=== PATIENT | female | born 1960 | race Caucasian/White ===

== ENCOUNTER 2024-07-02 07:17 | Outpatient (CLI) | payer OTHER, SELFPAY ==
--- NOTE | 2024-07-02 07:15 | CRLHL7_ITS ---
For Patients: As a result of the Century Cures Act, medical imaging exams and procedure reports are released immediately into your electronic medical record. You may view this report before your referring provider. If you have questions, please contact your health care provider. CLINICAL HISTORY: post menopausal bleeding TECHNIQUE: 2D sewell scale and color Doppler images were acquired of the pelvis using a transvaginal approach. FINDINGS: On transvaginal imaging, the myometrium has a normal uniform echotexture. The uterus measures 4.3 x 1.9 x 3.1 cm. The endometrial lining measures 1.8 mm in thickness. The left ovary is not visualized and the right ovary measures 3.9 x 2.6 x 3.0 cm. The right ovary demonstrates normal arterial and venous blood flow on color Doppler analysis. There are no suspicious fluid collections within the cul-de-sac. There is a complex right ovarian cyst present with hypoechoic internal echotexture measuring 2.7 x 2.3 x 2.3 cm along with a focus of increased echogenicity. There is some color flow present within this solid area. IMPRESSION: Endometrial thickness 1.8 millimeters. No endometrial fluid or uterine fibroid. Complex right ovarian cyst measuring 2.7 x 2.3 x 2.3 cm with a nonshadowing solid hyperechoic component with some internal color flow. Pelvic MRI recommended. Dictated by Charlie Brewer MD @ 07/02/2024 10:11:38 AM (Electronically Signed)
== END 2024-07-02 07:18 | disposition home or self-care (01) ==
LOC: US 07:18
PROVIDERS: Visit Provider Obstetrics & Gynecology
DX: N95.0 Postmenopausal bleeding (principal); R93.89 Abnormal findings on diagnostic imaging of other specified body structures; N83.291 Other ovarian cyst, right side
CPT/HCPCS: 76830; 93976

== ENCOUNTER 2024-07-10 13:37 | Outpatient (CLI) | payer OTHER, SELFPAY ==
[2024-07-13 05:23] LABS: HPV Source Cervical; HPV, High Risk by TMA Not Detected
== END 2024-07-10 13:38 | disposition home or self-care (01) ==
PROVIDERS: Visit Provider Obstetrics & Gynecology
DX: N95.0 Postmenopausal bleeding (principal); N89.8 Other specified noninflammatory disorders of vagina; Z12.4 Encounter for screening for malignant neoplasm of cervix
CPT/HCPCS: 86304; 87624; 87625; 88141; 88142

== ENCOUNTER 2024-07-21 07:08 | Outpatient (CLI) | payer OTHER, SELFPAY ==
--- NOTE | 2024-07-21 07:15 | CRLHL7_ITS ---
For Patients: As a result of the Century Cures Act, medical imaging exams and procedure reports are released immediately into your electronic medical record. You may view this report before your referring provider. If you have questions, please contact your health care provider. INDICATION: Abdominal and pelvic pain, follow-up pelvic ultrasound TECHNIQUE: 1.5 T MRI performed with pre and postcontrast T1 weighted imaging; T2 weighted imaging. 10.5 mL Dotarem administered COMPARISON: Pelvic ultrasound 07/02/2024 FINDINGS: Uterus: The uterus is normal in size measuring 2.1 x 5.8 cm. The endometrium measures 2 mm in thickness and possibly contains T2 heterogeneous debris. There is a 0.9 cm T2 hyperintense signal along the anterior uterine fundus, which may represent a scar. Please correlate with clinical history No uterine fibroids are appreciated. No evidence of adenomyosis. No intrinsic T1 hyperintense foci to definitely suggest endometriosis. Cervical stroma: Intact without evidence of mass Ovaries/adnexa: The left ovary is unremarkable. There is a well-circumscribed T2 hyperintense cystic structure within the right ovary measuring 2.4 cm (/18) without definite internal enhancement and smooth thin enhancing wall. There are two adjacent similar subcentimeter cystic lesions. Remaining pelvis: There is apparent tethering of loops of sigmoid colon adjacent to this cystic right ovarian structure (/17). Multiple loops of small bowel appear matted within the right lower pelvis. The bladder is unremarkable Vasculature: Visualized aorta is patent and normal in caliber. The iliac arteries are patent. Lymph nodes: No enlarged lymph nodes within the pelvis. Peritoneal space: No free fluid within the pelvis. There is peritoneal thickening adjacent to the right ovarian cystic structure (8/17). Musculoskeletal: Bone marrow signal is within normal limits. IMPRESSION: 1. Decreased size of right ovarian cystic structure measuring up to 2.1 cm, previously 2.7 cm on prior pelvic ultrasound, that now appears to complain simple fluid without evidence of internal enhancement. Recommend short interval follow-up ultrasound to ensure resolution. 2. The endometrium is normal in thickness however may contain heterogeneous debris. This can be further evaluated on repeat ultrasound if performed. 3. Apparent tethering of loops of sigmoid colon and matted small bowel loops in the right lower quadrant may suggest sequela of deep infiltrating endometriosis. Dictated by Farideh Watkins MD @ 07/22/2024 7:46:27 AM (Electronically Signed)
== END 2024-07-21 07:09 | disposition home or self-care (01) ==
LOC: MRI 07:10
PROVIDERS: Visit Provider Obstetrics & Gynecology
DX: R10.2 Pelvic and perineal pain (principal); N83.8 Other noninflammatory disorders of ovary, fallopian tube and broad ligament; N83.201 Unspecified ovarian cyst, right side; R93.89 Abnormal findings on diagnostic imaging of other specified body structures; K31.89 Other diseases of stomach and duodenum
CPT/HCPCS: 72197; A9575

== ENCOUNTER 2024-11-12 07:04 | Outpatient (CLI) | payer BC, SELFPAY | END 2024-11-12 07:05 | disposition home or self-care (01) | PROVIDERS: Visit Provider Obstetrics & Gynecology | DX: N83.8 Other noninflammatory disorders of ovary, fallopian tube and broad ligament (principal); N83.201 Unspecified ovarian cyst, right side | CPT/HCPCS: 76830 ==

== ENCOUNTER 2024-11-18 07:42 | Outpatient (CLI) | payer BC, SELFPAY | END 2024-11-18 07:43 | disposition home or self-care (01) | LOC: NFLDREF 11-21 03:08 | PROVIDERS: Visit Provider Obstetrics & Gynecology | DX: N83.8 Other noninflammatory disorders of ovary, fallopian tube and broad ligament (principal); N83.201 Unspecified ovarian cyst, right side | CPT/HCPCS: 82378; 86301; 86304 ==

== ENCOUNTER 2025-02-18 06:04 | Day surgery (SDC) | payer BC, SELFPAY ==
[2025-02-18] VITALS (11 sets, daily range): BP systolic 101–126; BP diastolic 51–86; PULSE 46–62; RESP 14–16; TEMP 36.2–36.8; O2SAT 94–98; BMI 21.9
[2025-02-18] MEDS: SODIUM CHLORIDE 0.9 % (FLUSH) 10 ML SYRINGE IVF (06:35)
[2025-02-18] MEDS: LACTATED RINGERS 1000 ML 1,000 ML 100 ML IV (06:35)
[2025-02-18 06:48] LABS: Hemoglobin* 14.2 gm/dL (12.0-16.0)
[2025-02-18] MEDS: BUPIVACAINE 0.5 %/EPI 1:200K 30 ML INJECTION (08:24)
--- NOTE | 2025-02-18 08:36 | P.ANES_ITS ---
Anesthesia Charges Start Date/Time Anesthesia Start Date: 02/18/25 Anesthesia Start Time: 07:24 Stop Date/Time Anesthesia Stop Date: 02/18/25 Anesthesia Stop Time: 08:52 Coding CPT Codes CPT Codes: ANESTH SURG LOWER ABDOMEN - 47465 ([id number]) P1 - NORMAL HEALTHY PATIENT, QK - REHABILITATION TEAM LEAD 2-4 CNCRNT ANES PROC, QX - SCREEN PRINT OPERATOR SVCampos W/ MED DIRECTION
--- NOTE | 2025-02-18 08:36 | W.ANESCHARGE ---
Anesthesia Charges Start Date/Time Anesthesia Start Date: 02/18/25 Anesthesia Start Time: 07:24 Stop Date/Time Anesthesia Stop Date: 02/18/25 Anesthesia Stop Time: 08:52 Coding CPT Codes CPT Codes: ANESTH SURG LOWER ABDOMEN - 03227 ([id number]) P1 - NORMAL HEALTHY PATIENT, QK - BANQUET DIRECTOR 2-4 CNCRNT ANES PROC, QX - ASSEMBLER BICYCLE SVC[employer] W/ MED DIRECTION
--- NOTE | 2025-02-18 08:40 | SUR.OPER ---
vega discontinued after procedure
--- NOTE | 2025-02-18 08:48 | W.PM.H&PU ---
History & Physical Update History & Physical Update H&P Reviewed and patient assessed: No changes noted
--- NOTE | 2025-02-18 08:50 | P.ANES_ITS ---
Anesthesia Charges Start Date/Time Anesthesia Start Date: 02/18/25 Anesthesia Start Time: 07:24 Stop Date/Time Anesthesia Stop Date: 02/18/25 Anesthesia Stop Time: 08:52 Coding CPT Codes CPT Codes: ANESTH SURG LOWER ABDOMEN - 77552 ([id number]) P1 - NORMAL HEALTHY PATIENT, QK - BURNER TENDER 2-4 CNCRNT ANES PROC, QX - BREAKER HAND SVCampos W/ MED DIRECTION
--- NOTE | 2025-02-18 08:50 | W.ANESCHARGE ---
Anesthesia Charges Start Date/Time Anesthesia Start Date: 02/18/25 Anesthesia Start Time: 07:24 Stop Date/Time Anesthesia Stop Date: 02/18/25 Anesthesia Stop Time: 08:52 Coding CPT Codes CPT Codes: ANESTH SURG LOWER ABDOMEN - 44101 ([id number]) P1 - NORMAL HEALTHY PATIENT, QK - UNIT TENDER 2-4 CNCRNT ANES PROC, QX - OPERATOR BEARER SYSTEMS SVCampos W/ MED DIRECTION
--- NOTE | 2025-02-18 08:55 | P.GYNPRC_ITS ---
Procedure Note Time Seen by Provider: 08:56 Date of procedure: 02/18/25 Will [facility] bill your pro fee for this procedure?: Yes Pre-op diagnosis: 1. Complex right ovarian cyst Post-op diagnosis: 1. Complex right ovarian cyst 2. Surgically absent left ovary Anesthesia: GETA and local Surgeon: Heidi Rico MD Estimated blood loss (mL): 5 IV fluids (mL): 900 Urine Output (mL): 150 Pathology: specimen obtained, sent to pathology (1. Right fallopian tube and ovary 2. Left fallopian tube remnant) Condition: stable Disposition: same day Procedure Description: Operation: Diagnostic Laparoscopy, bilateral salpingectomy, right oophorectomy Operative Findings: Exam under anesthesia: Pelvic exam: Mons normal, clitoris normal, urethral meatus normal. Labia minora and majora normal in appearance bilaterally. Perineum and anus normal appearance. Vaginal introitus with moderate atrophy, otherwise normal. Bimanual exam reveals uterus to be soft, nontender, mobile, anteverted, of small size and normal texture. No palpable adnexal masses or tenderness. Small umbilical hernia noted. On laparoscopy: normal right fallopian tubes. Right ovary looked normal appearing overall with small ovarian cyst noted. Left ovary surgically absent. Remnant of left fallopian tube. Filmy adhesion of the sigmoid colon to the left pelvic sidewall EBL: 5 cc Specimens: 1. Right fallopian and ovary 2. Left remnant of left fallopian tube Complications: None Clinical Note: Ms. Funk is a 64 year old female who presented with surgical management of right complex ovarian cyst. We have been monitoring since 06/2024. There was small interval growth but normal tumor markers. However, decision was made to pursue definitive management with bilateral salpingo-oophorectomy. Blessing was taken to the operating room where general anesthetic was found to be adequate. She was placed in the dorsal lithotomy position and an exam under anesthesia was performed with findings stated above. She was then prepped and draped in a normal sterile manner. A Bladder was drained with Harkins catheter was placed. Sponges was placed intravaginally to act as uterine manipulator. Attent ion was then turned to performing the laparoscopic portion of the procedure. All incisions were infiltrated with 1% lidocaine with epinephrine prior to incising the skin. A vertical, infraumbilical 5 mm incision was made. A 5 mm trocar was then placed under direct visualization through the hernia. The abdomen was then insufflated with CO2 gas to a pressure of 15 mm of mercury. The patient was then placed in steep Trendelenburg. A pelvic port was then placed approximately 3-4 finger breaths medial to the ischial crests. The trocar in the LLQ = 11mm. These were placed under direct visualization. A 3rd port was made in the patient's left lower quadrant, just superior medial to the left ASIS. A 5 mm Fios Kii port was inserted under direct visualization and without complication. The balloon on each of the 3 ports was inflated, holding each in place. Examination of the peritoneal cavity revealed no signs of injury from entry. Attention was then turned to performing the diagnostic laparoscopy and bilateral salpingectomy and oopherectomy. It was noted that left ovary was surgically absent. Beginning on the right side, the infundibular ligament (IP) was identified by lifting the fallopian tube towards the anterior wall of the abdomen. The ureter was visualized along the pelvic sidewall with vermiculating noted. The LigaSure device was then used to clamp and ligate the IP ligament in 3 sequential overlapping regions to ensure a secure blood supply prior to cutting. The IP was then cut mid distance and the pedicle was inspected for hemostasis. The fallopian tube was then sequentially clamped, ligated, and cut working in the right cornua and being mindful of always staying away all vasculatures. Attention was then turned towards left salpingectomy due to remnant noted. The left fallopian tube at the fimbria, removed with sequential pedicles using the LigaSure [place] tip dissecting forceps. Fallopian tube was removed from the abdominal cavity. Excellent hemostasis was noted of all pedicles. The trocars were then removed under direct visualization. The CO2 gas was allowed to escape the infraumbilical port prior to its removal. Fascia closed on the 11 port with a figure of 8 using 0 vicryl under direct visualization. Small umbilical hernia was closed with 1 figure of 8 with 0 vicryl under direct visualization as well. All incisions were reapproximated using 4-0 Monocryl in a running subcuticular manner. Exofin was applied over each incision. The vaginal manipulator and Harkins catheter were removed. The patient tolerated this procedure well. Sponge, lap and instrument counts were correct x2 at the end of the procedure and the patient was taken to the recovery area in stable condition. Surgical debrief performed and specimen reviewed.
[2025-02-18] MEDS: ACETAMINOPHEN 500 MG TABLET 1000 MG PO (10:15)
== END 2025-02-18 10:29 | disposition home or self-care (01) ==
LOC: OR 06:06
PROVIDERS: Visit Provider Obstetrics & Gynecology
PROC: (CPT 58661; principal; 2025-02-18 07:15)
DX: N83.291 Other ovarian cyst, right side (principal); Z90.721 Acquired absence of ovaries, unilateral; K42.9 Umbilical hernia without obstruction or gangrene
CPT/HCPCS: 58661; 00840; 36415; 85018; 86850; 86900; 86901; A9270; J1885; J2250; J2371; J2704; J3010; J3490; J7120